=== PATIENT | male | born 1945 | race Caucasian/White ===

== ENCOUNTER 2017-04-25 16:09 | Inpatient (IN) | payer MEDICARE, OTHER ==
[2017-04-25 18:06] LABS: Hematocrit 34 % (42-52); Hemoglobin 11.3 g/dl (14.0-18.0); Mean Corpuscular HGB Conc 34 g/dl (31-36); Mean Corpuscular Hemoglobin 30 pg (27-31); Mean Corpuscular Volume 88 fL (80-94); Mean Platelet Volume 8 um3 (7.4-10.4); Red Blood Count 3.82 10^6/ul (4.0-5.4); Red Cell Distribution Width 13 % (10.5-15); White Blood Count 7.7 10^3/ul (3.5-10.8)
[2017-04-25 18:16] LABS: Urine Bacteria Absent (Absent); Urine Bilirubin Negative (Negative); Urine Glucose 3+(>=500 mg/dL) (Negative); Urine Nitrite Negative (Negative)
[2017-04-25 18:22] LABS: Albumin 4.2 g/dL (3.2-5.2); BUN/Creatinine Ratio 12.9 (8-20); C Reactive Protein 16.46 mg/L (< 5.00); Calcium 9.6 mg/dL (8.6-10.3); EGFR African American 25.8 (>60); EGFR Non-African American 20.1 (>60); Globulin 3.3 g/dL (2-4); Magnesium 1.8 mg/dL (1.9-2.7); Potassium 4.3 mmol/L (3.5-5.0); Total Bilirubin 0.5 mg/dL (0.2-1.0); Total Protein 7.5 g/dL (6.4-8.9)
--- NOTE | 2017-04-25 21:33 | RAD ---
Indication: Elevated creatinine. Real-time sonography of the kidneys was performed. The right kidney measures 10.7 x 5.8 x 5.0 cm. No hydronephrosis is noted. The left kidney measures 11.6 x 6.1 x 4.1 cm. No hydronephrosis is noted. A cyst is noted in the lower pole measuring 2.2 x 1.9 x 2.2 cm. Incidentally noted is hepatic steatosis. IMPRESSION: No hydronephrosis of either kidney is noted.
[2017-04-25] MEDS: NS 0.9% 1000 ML* 1,000 ML IV SCH (22:13)
[2017-04-25] MEDS ORDERED: Dextrose 50% Syringe 50 ML* 25 GM/50 ML SYRINGE IV PUSH PRN (22:30)
--- NOTE | 2017-04-25 22:33 | ED ---
John Martinez Nikita, scribed for Adriel Delgado MD on 04/25/17 at 1743 . Complex/Multi-Sys Presentation - HPI Summary HPI Summary: This patient is a 71 year old M presenting to [facility] accompanied by with a chief complaint of abnormal kidney lab results. Patient reports he visited Dr. Mohan yesterday for kidney testing. Per Dr. Mohan, his had increased Creatinine and high BP. Patient denies pain and urination symptoms. PMHx of Prostate Cancer (recent radiation for cancer). FHx of Kidney Stones. 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 Alleviating Factor(s): Nothing. 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 - Allergies/Home Medications Allergies/Adverse Reactions: Allergies Allergy/AdvReac Type Severity Reaction Status Date / Time Codeine Allergy N/V Verified 04/25/17 16:29 Erythromycin Allergy Nausea Verified 04/25/17 16:29 ENVIRONMENTAL Allergy Unknown Uncoded 04/25/17 16:29 Reaction Details Home Medications: Home Medications Calcium Carbonate-Cholecalcife [Calcium 600 + D 600-200 mg-Unit] 1 tab PO DAILY 04/25/17 [History Confirmed 04/25/17] Diclofenac Sodium EC TAB* [Voltaren EC TAB*] 75 mg PO BID 04/25/17 [History Confirmed 04/25/17] Losartan TAB* [Cozaar TAB*] 100 mg PO DAILY 04/25/17 [History Confirmed 04/25/17 ] Simvastatin TAB(NF) [Zocor(NF)] 20 mg PO DAILY 04/25/17 [History Confirmed 04/25] metFORMIN* [Glucophage 1000 MG TAB *] 1,500 mg PO QPM 04/25/17 [History Confirmed 04/25/17] metFORMIN* [Glucophage 500 MG TAB *] 500 mg PO QAM 04/25/17 [History Confirmed 04/25/17] PMH/Surg Hx/FS Hx/Imm Hx Endocrine/Hematology History: Reports: Hx Diabetes - TYPE II Cardiovascular History: Reports: Hx Hypertension - ON MEDS Denies: Hx Pacemaker/ICD Respiratory History: Reports: Hx Asthma - UNDER CONTROL GI History: Denies: Other GI Disorders Musculoskeletal History: Denies: Other Musculoskeletal History Sensory History: Reports: Hx Cataracts - EARLY STAGES, Hx Contacts or Glasses - GLASSES Denies: Hx Hearing Aid Opthamlomology History: Reports: Hx Cataracts - EARLY STAGES, Hx Contacts or Glasses - GLASSES Neurological History: Denies: Other Neuro Impairments/Disorders Psychiatric History: Reports: Hx Panic Disorder - Surgical History Surgery Procedure, Year, and Place: [place], RIGHT SHOULDER SURGERY.vericocele Hx Anesthesia Reactions: No Infectious Disease History: No Infectious Disease History: Denies: History Other Infectious Disease, Traveled Outside the [place] in Last 30 Days - Family History Known Family History: Positive: Other - Kidney stones. 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 Positive: no symptoms reported All Other Systems Reviewed And Are Negative: Yes Physical Exam - Summary Physical Exam Summary: General: well-appearing, no pain distress Skin: warm, color reflects adequate perfusion, dry Head: normal Eyes: EOMI, CARLI ENT: normal Neck: supple, nontender Respiratory: CTA, breath sounds present Cardiovascular: RRR Abdomen: soft, nontender Bowel: present Musculoskeletal: normal, strength/ROM intact Neurological: normal, sensory/motor intact, A&O x3 Psychological: affect/mood appropriate Triage Information Reviewed: Yes Vital Signs On Initial Exam: Initial Vitals Temp Pulse Resp BP Pulse Ox 98.1 F 87 16 168/111 96 04/25/17 16:29 04/25/17 16:29 04/25/17 16:29 04/25/17 16:29 04/25/17 16:29 Vital Signs Reviewed: Yes - [place] Coma Scale Coma Scale Total: 15 Diagnostics - Vital Signs Vital Signs Temp Pulse Resp BP Pulse Ox 04/25/17 17:00 98.1 F 87 16 168/111 96 04/25/17 16:29 98.1 F 87 16 168/111 96 - Laboratory Lab Results: Lab Results 04/25/17 04/25/17 04/25/17 Range/Units 17:50 17:50 17:50 WBC (3.5-10.8) 10^3/ul RBC (4.0-5.4) 10^6/ul Hgb (14.0-18.0) g/dl Hct (42-52) % MCV (80-94) fL MCH (27-31) pg MCHC (31-36) g/dl RDW (10.5-15) % Plt Count (150-450) 10^3/ul MPV (7.4-10.4) um3 Neut % (Auto) (38-83) % Lymph % (Auto) (25-47) % [place] % (Auto) (1-9) % Eos % (Auto) (0-6) % Baso % (Auto) (0-2) % Absolute Neuts (auto) (1.5-7.7) 10^3/ul Absolute Lymphs (auto) (1.0-4.8) 10^3/ul Absolute Monos (auto) (0-0.8) 10^3/ul Absolute Eos (auto) (0-0.6) 10^3/ul Absolute Basos (auto) (0-0.2) 10^3/ul Absolute Nucleated RBC 10^3/ul Nucleated RBC % INR (Anticoag Therapy) 0.95 (0.89-1.11) APTT 31.7 (26.0-36.3) seconds Sodium 134 (133-145) mmol/L Potassium 4.3 (3.5-5.0) mmol/L Chloride 102 (101-111) mmol/L Carbon Dioxide 23 (22-32) mmol/L Anion Gap 9 (2-11) mmol/L BUN 40 H (6-24) mg/dL Creatinine 3.09 H (0.67-1.17) mg/dL Est GFR ( Amer) 25.8 (>60) Est GFR (Non-Af Amer) 20.1 (>60) BUN/Creatinine Ratio 12.9 (8-20) Glucose 202 H (70-100) mg/dL Calcium 9.6 (8.6-10.3) mg/dL Magnesium 1.8 L (1.9-2.7) mg/dL Total Bilirubin 0.50 (0.2-1.0) mg/dL AST 29 (13-39) U/L ALT 41 (7-52) U/L Alkaline Phosphatase 67 (34-104) U/L C-Reactive Protein 16.46 H (< 5.00) mg/L B-Natriuretic Peptide 186 H ( - 100) pg/mL Total Protein 7.5 (6.4-8.9) g/dL Albumin 4.2 (3.2-5.2) g/dL Globulin 3.3 (2-4) g/dL Albumin/Globulin Ratio 1.3 (1-3) Prostate Specific Ag 0.011 (0-4.000) ng/mL Urine Color Urine Appearance Urine pH (5-9) Ur Specific [place] (1.010-1.030) Urine Protein (Negative) Urine Ketones (Negative) Urine Blood (Negative) Urine Nitrate (Negative) Urine Bilirubin (Negative) Urine Urobilinogen (Negative) Ur Leukocyte Esterase (Negative) Urine WBC (Auto) (Absent) Urine RBC (Auto) (Absent) Urine Bacteria (Absent) Urine Glucose (Negative) 04/25/17 04/25/17 Range/Units 17:50 17:55 WBC 7.7 (3.5-10.8) 10^3/ul RBC 3.82 L (4.0-5.4) 10^6/ul Hgb 11.3 L (14.0-18.0) g/dl Hct 34 L (42-52) % MCV 88 (80-94) fL MCH 30 (27-31) pg MCHC 34 (31-36) g/dl RDW 13 (10.5-15) % Plt Count 220 (150-450) 10^3/ul MPV 8 (7.4-10.4) um3 Neut % (Auto) 69.9 (38-83) % Lymph % (Auto) 15.8 L (25-47) % [place] % (Auto) 8.0 (1-9) % Eos % (Auto) 5.5 (0-6) % Baso % (Auto) 0.8 (0-2) % Absolute Neuts (auto) 5.3 (1.5-7.7) 10^3/ul Absolute Lymphs (auto) 1.2 (1.0-4.8) 10^3/ul Absolute Monos (auto) 0.6 (0-0.8) 10^3/ul Absolute Eos (auto) 0.4 (0-0.6) 10^3/ul Absolute Basos (auto) 0.1 (0-0.2) 10^3/ul Absolute Nucleated RBC 0 10^3/ul Nucleated RBC % 0 INR (Anticoag Therapy) (0.89-1.11) APTT (26.0-36.3) seconds Sodium (133-145) mmol/L Potassium (3.5-5.0) mmol/L Chloride (101-111) mmol/L Carbon Dioxide (22-32) mmol/L Anion Gap (2-11) mmol/L BUN (6-24) mg/dL Creatinine (0.67-1.17) mg/dL Est GFR ( Amer) (>60) Est GFR (Non-Af Amer) (>60) BUN/Creatinine Ratio (8-20) Glucose (70-100) mg/dL Calcium (8.6-10.3) mg/dL Magnesium (1.9-2.7) mg/dL Total Bilirubin (0.2-1.0) mg/dL AST (13-39) U/L ALT (7-52) U/L Alkaline Phosphatase (34-104) U/L C-Reactive Protein (< 5.00) mg/L B-Natriuretic Peptide ( - 100) pg/mL Total Protein (6.4-8.9) g/dL Albumin (3.2-5.2) g/dL Globulin (2-4) g/dL Albumin/Globulin Ratio (1-3) Prostate Specific Ag (0-4.000) ng/mL Urine Color Straw Urine Appearance Clear Urine pH 5.0 (5-9) Ur Specific [place] 1.007 L (1.010-1.030) Urine Protein Negative (Negative) Urine Ketones Negative (Negative) Urine Blood 1+ H (Negative) Urine Nitrate Negative (Negative) Urine Bilirubin Negative (Negative) Urine Urobilinogen Negative (Negative) Ur Leukocyte Esterase Negative (Negative) Urine WBC (Auto) Trace(0-5/hpf) (Absent) Urine RBC (Auto) Trace(0-2/hpf) (Absent) Urine Bacteria Absent (Absent) Urine Glucose 3+(>=500 mg/dl) H (Negative) Result Diagrams: 04/25/17 17:50 04/25/17 17:50 Lab Statement: Any lab studies that have been ordered have been reviewed, and results considered in the medical decision making process. - Ultrasound No standard instances Ultrasound Interpretation Completed By: Radiologist - Renal US: No hydronephrosis of either kidney is noted. Re-Evaluation - Re-Evaluation First Eval Re-Evaluation Time: 20:30 Comment: Updated pt about results. Second Eval Re-Evaluation Time: 20:45 Comment: Discussed with pt about plans to admit. Pt is unsure whether he wants to stay. Third Eval Re-Evaluation Time: 21:54 Comment: Discuss with pt who agrees to admission. Complex Multi-Symp Course/Dx Course Of Treatment: DISCUSSED WITH DR ADAMS AND HOSPITALIST. NO SIGN OF MECHANICAL OBSTRUCTION. PATIENT ADMITTED BY HOSPITALIST. DISCUSSED WITH PATIENT/. NO CRITICAL CARE TIME. - Diagnoses Provider Diagnoses: Acute renal insufficiency - Physician Notifications Discussed Care Of Patient With: Nii Adams Time Discussed With Above Provider: 20:35 Instructed by Provider To: Other - Consulted Dr. Adams who recommends we do a Renal US to test for hydro nephrosis. Consulted Dr. Ponce at 2041 who accepts pt for admission. Consulted Dr. Ponce at 2224 about the pt who agrees to admit , so he accepts the pt for admission. Discharge - Discharge Plan Condition: Stable Disposition: ADMITTED TO [facility] Referrals: Yaakov Mohan MD [Primary Care Provider] - The documentation as recorded by the John manzano Nikita accurately reflects the service I personally performed and the decisions made by me, Adriel Delgado MD.
[2017-04-26] MEDS: NS 0.9% 1000 ML* 1,000 ML IV SCH ×5 (02:32→22:35)
[2017-04-26 05:45] LABS: BUN/Creatinine Ratio 13.3 (8-20); Calcium 8.8 mg/dL (8.6-10.3); EGFR African American 30.1 (>60); EGFR Non-African American 23.4 (>60); Potassium 4.4 mmol/L (3.5-5.0)
[2017-04-26] MEDS ORDERED: Insulin LISPRO* 1 UNITS UNIT SUBCUT SCH (07:30)
--- NOTE | 2017-04-26 08:51 | HP ---
CC: Dr. Yaakov Mohan * HISTORY AND PHYSICAL: DATE OF ADMISSION: 04/26/17 PRIMARY CARE PHYSICIAN: Dr. Yaakov Mohan. CHIEF COMPLAINT: Abnormal labs. HISTORY OF PRESENT ILLNESS: The patient is a 71-year-old gentleman who said he used to be a patient of Dr. Tian Cerna and went to get set up with Dr. Dr. Yaakov Mohan as his new PCP when he had his labs drawn today. Unfortunately, his creatinine came back high, over 3, and his new PCP was appropriately concerned. He was concerned also that it could be a postrenal cause and so sent him over to the ER for evaluation. The patient did have an ultrasound which showed no evidence of hydronephrosis. It was unclear as to why his kidney function was worsening. The patient does say that he takes losartan and may have been taking wrong for several days. He otherwise feels fine. He has no complaints. No frequency of urination or pain on urination, or hesitancy in urination. He has no flank pain. PAST MEDICAL HISTORY: He has a past medical history significant for prostate cancer, status post radiation therapy and Lupron, diabetes mellitus, hypertension. PAST SURGICAL HISTORY: Significant for right shoulder surgery. CURRENT MEDICATIONS: 1. Diclofenac 75 mg twice a day, which he rarely takes. 2. Calcium carbonate with cholecalciferol 1 tablet daily. 3. Zocor 20 mg daily. 4. Losartan 100 mg daily. 5. Metformin 500 mg in the morning and 1500 mg in the evening. ALLERGIES: He has allergy/adverse reaction to CODEINE and ERYTHROMYCIN. FAMILY HISTORY: Mother at 95 of diabetes. Father at 69 of an [place]. SOCIAL HISTORY: No tobacco, alcohol, or recreational drug use. 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 His is his healthcare proxy. He has 2 children. REVIEW OF SYSTEMS: A 14-point review of systems is completed with the patient. All pertinent positives and negatives are in the history of present illness, otherwise negative. PHYSICAL EXAMINATION GENERAL: A pleasant gentleman lying in bed, in no acute distress. VITAL SIGNS: Temperature 98.2 degrees, heart rate 80 beats per minute, respiratory rate 16 breaths per minute, pulse ox 98%, blood pressure 168/93. HEENT: Normocephalic and atraumatic. Pupils are equal, round and reactive to light. Moist mucous membranes. NECK: Supple. No JVD, bruits, palpable thyroid or lymphadenopathy. CHEST: Clear to auscultation and percussion bilaterally. CARDIOVASCULAR: S1, S2 appreciated. Regular rate and rhythm. ABDOMEN: Positive bowel sounds in all 4 quadrants. Soft, nontender, and nondistended. No hepatosplenomegaly. EXTREMITIES: No cyanosis, clubbing, or edema. +2 peripheral pulses bilaterally. NEUROLOGIC: Alert and oriented x3. Moves all extremities. SKIN: No rashes or abnormalities. LABORATORY DATA: White count 7.7, hemoglobin 9.3, hematocrit 34, his platelets are 220. His sodium is 134, potassium 4.2, chloride 102, CO2 23, BUN 40, creatinine . His glucose is 202. BNP is 186. Urinalysis is +3 glucose. INR is 0.95. Renal ultrasound shows no hydronephrosis of the kidney is noted. ASSESSMENT AND PLAN: 1. Acute kidney injury. Unclear etiology. The patient says he has been taking diclofenac at sometime. He may have taken his losartan incorrectly over the last several days. We will vigorously hydrate the patient. Recheck in the a.m. The patient is adamant and he wants to go home tomorrow, no matter what his labs show. Hopefully, they will show resolution or certainly improvement. I have also ordered a urine sodium and creatinine to find out fractional excretion of sodium. 2. Diabetes mellitus. Hold metformin. We will have to have this discontinued for now with his creatinine that is high anyway. Fingersticks with sliding scale insulin. 3. Hypertension. Poor control, but we will have to hold losartan, monitor, may need to initiate another medication such amlodipine. 4. FEN. Consistent carb diet. 5. DVT prophylaxis. Heparin subcu. 6. The patient is a full code. TIME SPENT: Over 75 minutes was spent on this H and P; more than 40 minutes of which was spent on direct [id number] contact with the patient in evaluation, physical exam, counseling, and coordination of care. [id number]/[facility]PS #: [id number] MTDD
[2017-04-26] MEDS ORDERED: Atorvastatin* 10 MG TAB PO SCH (09:00)
[2017-04-26] MEDS ORDERED: amLODIPine TAB* 5 MG PO SCH ×2 (11:00→19:59)
[2017-04-26] MEDS: glipiZIDE TAB* 5 MG PO SCH (11:31)
[2017-04-26] MEDS: Heparin VIAL(*) 5000 UNITS/ML VIAL (FIVE THOUSAND) SUBCUT SCH ×2 (15:00→21:53)
[2017-04-26] MEDS: PTO: Fexofenadine (NF) 180 MG TAB PO SCH (15:58)
--- NOTE | 2017-04-26 17:15 | PN ---
Subjective Date of Service: 04/26/17 Interval History: Patient seen with at bedside He was very upset this AM about his stay in the hospital. We discussed his concerns and he relays that he is frustrated by "all the inefficiencies" in the hospital which include bringing a menu without a pencil, his IV pump ringing, and having to use a buzzer to call for a nursing. Today he feels well and denies CP, SOB, N/V, LH, changes in urination Objective Active Medications: Amlodipine Besylate (Norvasc Tab*) 5 mg PO DAILY [facility] Last Admin: 04/26/17 11:32 Dose: 5 mg Dextrose (D50w Syringe 50 Ml*) 12.5 gm IV PUSH .FOR FS < 60 - SS PRN PRN Reason: FS < 60 Fexofenadine HCl (Kandi 180 (Nf)) 180 mg PO 0900 [facility] Last Admin: 04/26/17 15:58 Dose: 180 mg Glipizide (Glucotrol Tab*) 2.5 mg PO DAILY [facility] Last Admin: 04/26/17 11:31 Dose: 2.5 mg Heparin Sodium (Porcine) (Heparin Vial(*)) 5,000 units SUBCUT Q8HR [facility] Last Admin: 04/26/17 15:00 Dose: 5,000 units Sodium Chloride (Ns 0.9% 1000 Ml*) 1,000 mls @ 200 mls/hr IV PER RATE [facility] Last Admin: 04/26/17 07:31 Dose: 200 mls/hr Simvastatin (Zocor(Nf)) 10 mg PO DAILY [facility] Oxygen Devices in Use Now: None Appearance: obese, NAD Eyes: No Scleral Icterus, PERRLA Ears/Nose/Mouth/Throat: NL Teeth, Lips, Gums, Clear Oropharnyx, Mucous Membranes Moist Neck: NL Appearance and Movements; NL JVP, Trachea Midline, No Thyroid Enlargement, Masses Respiratory: Symmetrical Chest Expansion and Respiratory Effort, Clear to Auscultation Cardiovascular: NL Sounds; No Murmurs; No JVD, RRR, No Edema Abdominal: NL Sounds; No Tenderness; No Distention, No Hepatosplenomegaly Lymphatic: No Cervical Adenopathy Extremities: No Edema, No Clubbing, Cyanosis Skin: No Rash or Ulcers, No Nodules or Sclerosis Neurological: Alert and Oriented x 3, - - cn2-12 intact Result Diagrams: 04/25/17 17:50 04/26/17 05:16 Additional Lab and Data: Lab Results 04/25/17 04/25/17 04/25/17 Range/Units 17:50 17:50 17:50 WBC (3.5-10.8) 10^3/ul RBC (4.0-5.4) 10^6/ul Hgb (14.0-18.0) g/dl Hct (42-52) % MCV (80-94) fL MCH (27-31) pg MCHC (31-36) g/dl RDW (10.5-15) % Plt Count (150-450) 10^3/ul MPV (7.4-10.4) um3 Neut % (Auto) (38-83) % Lymph % (Auto) (25-47) % [place] % (Auto) (1-9) % Eos % (Auto) (0-6) % Baso % (Auto) (0-2) % Absolute Neuts (auto) (1.5-7.7) 10^3/ul Absolute Lymphs (auto) (1.0-4.8) 10^3/ul Absolute Monos (auto) (0-0.8) 10^3/ul Absolute Eos (auto) (0-0.6) 10^3/ul Absolute Basos (auto) (0-0.2) 10^3/ul Absolute Nucleated RBC 10^3/ul Nucleated RBC % INR (Anticoag Therapy) 0.95 (0.89-1.11) APTT 31.7 (26.0-36.3) seconds Sodium 134 (133-145) mmol/L Potassium 4.3 (3.5-5.0) mmol/L Chloride 102 (101-111) mmol/L Carbon Dioxide 23 (22-32) mmol/L Anion Gap 9 (2-11) mmol/L BUN 40 H (6-24) mg/dL Creatinine 3.09 H (0.67-1.17) mg/dL Est GFR ( Amer) 25.8 (>60) Est GFR (Non-Af Amer) 20.1 (>60) BUN/Creatinine Ratio 12.9 (8-20) Glucose 202 H (70-100) mg/dL Calcium 9.6 (8.6-10.3) mg/dL Magnesium 1.8 L (1.9-2.7) mg/dL Total Bilirubin 0.50 (0.2-1.0) mg/dL AST 29 (13-39) U/L ALT 41 (7-52) U/L Alkaline Phosphatase 67 (34-104) U/L C-Reactive Protein 16.46 H (< 5.00) mg/L B-Natriuretic Peptide 186 H ( - 100) pg/mL Total Protein 7.5 (6.4-8.9) g/dL Albumin 4.2 (3.2-5.2) g/dL Globulin 3.3 (2-4) g/dL Albumin/Globulin Ratio 1.3 (1-3) Prostate Specific Ag 0.011 (0-4.000) ng/mL Urine Color Urine Appearance Urine pH (5-9) Ur Specific [place] (1.010-1.030) Urine Protein (Negative) Urine Ketones (Negative) Urine Blood (Negative) Urine Nitrate (Negative) Urine Bilirubin (Negative) Urine Urobilinogen (Negative) Ur Leukocyte Esterase (Negative) Urine WBC (Auto) (Absent) Urine RBC (Auto) (Absent) Urine Bacteria (Absent) Urine Glucose (Negative) 04/25/17 04/25/17 Range/Units 17:50 17:55 WBC 7.7 (3.5-10.8) 10^3/ul RBC 3.82 L (4.0-5.4) 10^6/ul Hgb 11.3 L (14.0-18.0) g/dl Hct 34 L (42-52) % MCV 88 (80-94) fL MCH 30 (27-31) pg MCHC 34 (31-36) g/dl RDW 13 (10.5-15) % Plt Count 220 (150-450) 10^3/ul MPV 8 (7.4-10.4) um3 Neut % (Auto) 69.9 (38-83) % Lymph % (Auto) 15.8 L (25-47) % [place] % (Auto) 8.0 (1-9) % Eos % (Auto) 5.5 (0-6) % Baso % (Auto) 0.8 (0-2) % Absolute Neuts (auto) 5.3 (1.5-7.7) 10^3/ul Absolute Lymphs (auto) 1.2 (1.0-4.8) 10^3/ul Absolute Monos (auto) 0.6 (0-0.8) 10^3/ul Absolute Eos (auto) 0.4 (0-0.6) 10^3/ul Absolute Basos (auto) 0.1 (0-0.2) 10^3/ul Absolute Nucleated RBC 0 10^3/ul Nucleated RBC % 0 INR (Anticoag Therapy) (0.89-1.11) APTT (26.0-36.3) seconds Sodium (133-145) mmol/L Potassium (3.5-5.0) mmol/L Chloride (101-111) mmol/L Carbon Dioxide (22-32) mmol/L Anion Gap (2-11) mmol/L BUN (6-24) mg/dL Creatinine (0.67-1.17) mg/dL Est GFR ( Amer) (>60) Est GFR (Non-Af Amer) (>60) BUN/Creatinine Ratio (8-20) Glucose (70-100) mg/dL Calcium (8.6-10.3) mg/dL Magnesium (1.9-2.7) mg/dL Total Bilirubin (0.2-1.0) mg/dL AST (13-39) U/L ALT (7-52) U/L Alkaline Phosphatase (34-104) U/L C-Reactive Protein (< 5.00) mg/L B-Natriuretic Peptide ( - 100) pg/mL Total Protein (6.4-8.9) g/dL Albumin (3.2-5.2) g/dL Globulin (2-4) g/dL Albumin/Globulin Ratio (1-3) Prostate Specific Ag (0-4.000) ng/mL Urine Color Straw Urine Appearance Clear Urine pH 5.0 (5-9) Ur Specific [place] 1.007 L (1.010-1.030) Urine Protein Negative (Negative) Urine Ketones Negative (Negative) Urine Blood 1+ H (Negative) Urine Nitrate Negative (Negative) Urine Bilirubin Negative (Negative) Urine Urobilinogen Negative (Negative) Ur Leukocyte Esterase Negative (Negative) Urine WBC (Auto) Trace(0-5/hpf) (Absent) Urine RBC (Auto) Trace(0-2/hpf) (Absent) Urine Bacteria Absent (Absent) Urine Glucose 3+(>=500 mg/dl) H (Negative) Assess/Plan/Problems-Billing Assessment: 71 yo M h/o prostate ca s/p radiation x 9 weeks (last 01/2017) HTN, DM2 found with creatinine >3 as outpatient and sent to hospital for further evaluation - Patient Problems (1) Acute kidney failure Comment: FeNa >2 and BUN:Cr ration <2 and no h/o dehydration argues against prerenal although some improvement overnight with NS. No change in medications. Has been on losartan for years. No post renal obstruction. His only NSAID he takes 1-2x per week at most. Suspect intrinsic renal pathology. Discussed with Dr. Ferrera who will be unable to consult today but will see tomorrow. Start 24hr urine collection, check SPEP/UPEP, ANCA panel. Repeat BMP tomorrow. Continue with normal saline. Stop losartan (2) Hypertension Comment: stop losartan start norvasc (3) Diabetes Comment: stop metformin start glipizide 2.5mg daily (4) DVT prophylaxis Comment: HSQ
[2017-04-26] MEDS ORDERED: Insulin LISPRO* 1 UNITS UNIT SUBCUT ONE (19:59)
[2017-04-26] MEDS ORDERED: amLODIPine TAB* 5 MG PO ONE (20:00)
[2017-04-27] MEDS: NS 0.9% 1000 ML* 1,000 ML IV SCH (03:37)
[2017-04-27] MEDS: Heparin VIAL(*) 5000 UNITS/ML VIAL (FIVE THOUSAND) SUBCUT SCH (05:15)
[2017-04-27 05:41] LABS: BUN/Creatinine Ratio 13.7 (8-20); Calcium 8.6 mg/dL (8.6-10.3); EGFR African American 41.5 (>60); EGFR Non-African American 32.3 (>60); Potassium 4.5 mmol/L (3.5-5.0)
[2017-04-27] MEDS: PTO: Fexofenadine (NF) 180 MG TAB PO SCH (08:29)
[2017-04-27] MEDS: glipiZIDE TAB* 5 MG PO SCH (08:30)
[2017-04-27] MEDS ORDERED: SIMVASTATIN 20 MG PO SCH (09:00)
--- NOTE | 2017-04-27 10:01 | DCNOTE ---
Patient seen this morning. Anxious to be discharged. Understands plans to f/u with Dr. Ferrera. 24 hr urine will be completed at 1030. On exam, middle-aged, M, sitting in chair in NAD, no LE edema Discharge home with med changes (d/c metformin and losartan, begin amlodipine and glipizide). F/U with PCP and Nephro.
[2017-04-27 11:34] VITALS: BP 176/74
--- NOTE | 2017-04-27 11:48 | CONS ---
CC: Dr. Mohan * NEPHROLOGY CONSULTATION: DATE OF CONSULT: 04/26/17 HISTORY OF PRESENT ILLNESS: Mr. Miranda is a 71-year-old gentleman previously a patient of Dr. Cerna who has recently been seen by Dr. Mohan. He had some routine laboratory tests done and he was found to have an elevated serum creatinine precipitating hospitalization. Around the time of admission, there was no episodes of dehydration or hemorrhage. There is no lightheadedness, no dizziness, no infectious illnesses. No penicillins. He has had no x-ray contrast studies. He does take diclofenac and had 1 tablet in the few days prior to admission and he takes it on an irregular basis because of right shoulder pain. He has a history of prostate cancer. He is status post radiation therapy and Lupron. PAST MEDICAL HISTORY: Significant for diabetes mellitus type 2 and hypertension. MEDICATIONS AT THE TIME OF ADMISSION: Include: 1. Diclofenac 75 mg twice a day p.r.n. 2. Calcium carbonate with cholecalciferol 1 daily. 3. Zocor 20 mg daily. 4. Losartan 100 mg daily. 5. Metformin 500 mg in the morning and 1500 mg at bedtime. ALLERGIES: He is allergic to CODEINE and ERYTHROMYCIN. FAMILY HISTORY: Unremarkable. 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 REVIEW OF SYSTEMS: Unremarkable. PHYSICAL EXAM: General: He is a well-developed, well-nourished white gentleman who appears to be quite comfortable. Vital Signs: Blood pressure is 129/67 with a pulse of 84, respirations are 16. HEENT: He is anicteric. His extraocular muscles are intact. Mucous membranes are moist. Neck: There is no jugular venous distention. Chest: Clear. Heart: Revealed a regular rate and rhythm without murmurs. Abdomen: Soft and nontender. Bones, joints, and extremities: Reveal no cyanosis, clubbing, or edema. Neurologic: Grossly intact. DIAGNOSTIC STUDIES/LAB DATA: A review of his laboratory studies reveals hemoglobin of 11.3 with a white count of 7.7. His creatinine is 2.5 down from maximum of 3.09. His electrolytes reveal a sodium of 138, potassium 4.5, total CO2 of 21, chloride 110, BUN 28, glucose 227. His most recent hemoglobin A1c in January was 8. His urinalysis revealed 1+ blood, but was otherwise unremarkable. IMPRESSION: Acute renal insufficiency. He had some known low-grade renal insufficiency as of November of this year. We do not have any of the usual culprits with regard to precipitating this event. Nevertheless with hydration, he has been getting better fairly rapidly. I would probably withhold his losartan until we see his renal function continue to improve. The patient will stay off of metformin as well. I would avoid nonsteroidal anti-inflammatory agents. I will see him back in the office somewhere in the vicinity of a week. [id number]/[facility] #: [id number] TORIN
[2017-04-27 17:09] LABS: Albumin 3.2 g/dL (3.4-4.7); Gamma Globulin 0.9 g/dL (0.6-1.6); Total Protein(PEP) 6.5 g/dL (6.3 - 7.9)
--- NOTE | 2017-04-28 10:29 | DS ---
CC: Dr. Mohan; Dr. Gamble; Dr. Ferrera DISCHARGE SUMMARY: DATE OF ADMISSION: 04/25/17 DATE OF DISCHARGE: 04/27/17 PRIMARY CARE PHYSICIAN: Dr. Mohan PRINCIPAL DISCHARGE DIAGNOSIS: Acute renal insufficiency. SECONDARY DIAGNOSES: Prostate cancer, status post radiation therapy and Lupron, diabetes, hypertens ion. CONSULTATION DURING HOSPITALIZATION: Dr. Surya Ferrera, Nephrology. DISCHARGE MEDICATION REGIMEN: 1. Amlodipine 10 mg by mouth daily. 2. Glipizide 5 mg by mouth daily. 3. Simvastatin 20 mg by mouth daily. 4. Calcium carbonate with cholecalciferol 600/200 mg 1 tablet by mouth daily. STUDIES DURING HOSPITALIZATION: Renal ultrasound, impression: No hydronephrosis of the kidney is n oted. HISTORY OF PRESENT ILLNESS AND HOSPITAL SUMMARY: Please see the full history and physical by Dr. Patric Ponce for full details. Briefly, Mr. Miranda is a 71-year-old man who presented to [facility] care with Dr. Mohan and had routine labs drawn and the patient was found to have a creatinine over 3. T here is no clear evidence for why this may have happened, so Dr. Mohan recommended to come to the e mergency room for evaluation. He underwent ultrasound, which showed no evidence of hydronephrosis. On review of history, the patient takes NSAIDs sparingly and he has been on losartan for quite a wh ile. The exact etiology of his renal insufficiency was unclear. He was started on IV fluids and ove r the following days his renal function improved. Discharge creatinine was 2.05. Dr. Ferrera evalua liv the patient. A myeloperoxidase antibody and proteinase 3 antibody were negative. The patient feliz d SPEP and UPEP that were pending at the time of discharge as well as an ANCA panel that was pending . A 24-hour urine was collected prior to discharge. The results of which are not back yet. The pat ient will be discharged off of losartan and off of metformin due to his kidney dysfunction and as sa id will be sent on amlodipine and glipizide. The patient will follow up with his PCP as well as brandt Ferrera in the office for further evaluation and review of the labs. Labs pending at the time of discharge SPEP, UPEP, ANCA panel, 24-hour urine. TIME SPENT: Total time spent on this discharge 45 minutes. This is a summary of hospitalization. Please see the full medical record for further details. [id number]/[facility] #: [id number]
[2017-05-03 13:33] LABS: Albumin 43 %; Total Protein Concentration 6 mg/dL
== END 2017-04-27 11:23 | disposition home or self-care (01) | DRG 684 ==
LOC: ED 16:09 → MED 22:27 → OBSVTOIN 04-26 15:51 → MED 04-27 11:13
PROVIDERS: ADMIT Internal Medicine; ATTEND Hospitalist
DX: N17.9 Acute kidney failure, unspecified (principal); E11.36 Type 2 diabetes mellitus with diabetic cataract; I10 Essential (primary) hypertension; F41.0 Panic disorder [episodic paroxysmal anxiety]; J45.909 Unspecified asthma, uncomplicated; Z83.3 Family history of diabetes mellitus; Z82.49 Family history of ischemic heart disease and other diseases of the circulatory system; Z85.46 Personal history of malignant neoplasm of prostate; Z88.1 Allergy status to other antibiotic agents; Z84.1 Family history of disorders of kidney and ureter; Z92.3 Personal history of irradiation; Z79.84 Long term (current) use of oral hypoglycemic drugs; Z88.5 Allergy status to narcotic agent
CPT/HCPCS: 36415; 76775; 80048; 80053; 81003; 81015; 82570; 83516; 83735; 83880; 84153; 84155; 84156; 84165; 84166; 84300; 85025; 85610; 85730; 86140; A9270-GY; G0103; J1644

== ENCOUNTER 2017-12-20 20:27 | Emergency (ER) | payer MEDICARE, OTHER ==
[2017-12-20 20:47] VITALS: BP 179/98
--- NOTE | 2017-12-20 21:26 | UC ---
Upper Extremity HPI - HPI Summary HPI Summary: 72 y/o male PMHX DM type II and HTN presents to the urgent care c/o left thumb pain w/swelling and pus s/p banging his thumb in a door about 2 days ago. Pt reports part of nail was pulled. It became bruised on the medial side of his nail. Yesterday it became swollen w/ pus. he has taken Tylenol PO to alleviate symptoms. Pain is throbbing 8/10. Pt can move his thumb w/o any difficulty. Pt denies numbness or tingling sensation, fever, sOB, chest pain, abdominal pain , N/V/D. - History of Current Complaint Chief Complaint: UCUpperExtremity Stated Complaint: INFECTED FINGER Time Seen by Provider: 12/20/17 21:15 Hx Obtained From: Patient Onset/Duration: Sudden Onset, Lasting Days - 2 days, Still Present, Worse Since - yesterday Severity Initially: Moderate Severity Currently: Moderate Pain Intensity: 8 - touch Pain Scale Used: 0-10 Numeric Location Of Pain: Is Discrete @ - left first phalanx DIPJ and nailbed Character: Throbbing Aggravating Factor(s): Movement, Flexion Alleviating Factor(s): Heat, Rest Associated Signs And Symptoms: Positive: Swelling, Redness, Bruising. Negative : Fever, Numbness/Tingling Related History: Dominant Hand Right - Risk Factors Non-Orthopedic Risk Factor: Negative DVT Risk Factors: Negative Septic Arthritis Risk Factor: Negative - Allergies/Home Medications Allergies/Adverse Reactions: Allergies Allergy/AdvReac Type Severity Reaction Status Date / Time peanut Allergy Severe N/V Verified 12/20/17 20:49 codeine Allergy N/V Verified 12/20/17 20:49 erythromycin base Allergy Nausea Verified 12/20/17 20:49 ENVIRONMENT Allergy SEE Uncoded 12/20/17 20:49 COMMENTS Home Medications: Home Medications Acetaminophen [Mapap] 1,000 mg PO ONCE PRN MDD ] 12/20/17 [History Confirmed ] Sitagliptin Phosphate [Januvia] 100 mg PO DAILY 12/20/17 [History Confirmed ] glipiZIDE TAB* [Glucotrol TAB*] 10 mg PO DAILY 12/20/17 [History Confirmed 12/20] PMH/Surg Hx/FS Hx/Imm Hx Previously Healthy: Yes Endocrine History: Diabetes, Dyslipidemia Cardiovascular History: Hypertension - Surgical History Surgical History: Yes Surgery Procedure, Year, and Place: [facility] [place], RIGHT SHOULDER SURGERY.vericocele - Family History Known Family History: Positive: Cardiac Disease, Hypertension Family History: Kidney stones. - Social History Occupation: Retired Lives: With Family Alcohol Use: Occasionally Substance Use Type: None Smoking Status (MU): Never Smoked Tobacco - Immunization History Most Recent Influenza Vaccination: 2014 Most Recent Pneumonia Vaccination: unknown Review of Systems Constitutional: Negative Skin: Bruising - around left first DPIJ, Other - infected left thumb w/ swelling , rednees and pus Eyes: Negative ENT: Negative Respiratory: Negative Cardiovascular: Negative Gastrointestinal: Negative Genitourinary: Negative Motor: Negative Neurovascular: Negative Musculoskeletal: Decreased ROM - left first DPIJ, Other: - left thumb pain s/p injury Neurological: Negative Psychological: Negative Is Patient Immunocompromised?: No All Other Systems Reviewed And Are Negative: Yes Physical Exam - Summary Physical Exam Summary: Vital Signs Reviewed: Yes General: well developed, well nourished obese male sitting in the examining table w/o any apparent distress Eye Exam: Normal Eyes: Positive: Conjunctiva Clear - PERRLA, EOMI, fundi grossly normal ENT: Positive: Normal ENT inspection, Hearing grossly normal, Pharynx normal, TMs normal Neck: Positive: Supple, Nontender, No Lymphadenopathy Respiratory: Positive: Chest non-tender, Lungs clear, Normal breath sounds, No respiratory distress Cardiovascular: Positive: RRR, No Murmur, Pulses Normal, Brisk Capillary Refill Abdomen Description: Positive: Nontender, No Organomegaly, Soft. Negative: CVA Tenderness (R), CVA Tenderness (L) Bowel Sounds: Positive: Present Musculoskeletal: Positive: Strength Intact, ROM Intact, No Edema Neurological: Positive: Alert, Muscle Tone Normal Psychological Exam: Normal Skin: Positive: LF phalanx near first DIPJ with a brushing, and erythematous pustule that is indurated and fluctuant, tender to palpation, swollen, and warm to touch around medial aspect of nailbed.. Decreae ROM of first DIPJ due to pain., sensation is intact, capillary refill WNL, reflexes WNL Triage Information Reviewed: Yes Vital Signs: Initial Vital Signs Temp 99.3 F 12/20/17 20:42 Pulse 80 12/20/17 20:42 Resp 16 12/20/17 20:42 BP 179/98 12/20/17 20:42 Pulse Ox 96 12/20/17 20:42 Upper Extremity Course/Dx - Course Course Of Treatment: 72 y/o male PMHX DM type II and HTN presents to the urgent care c/o left thumb pain w/swelling and pus s/p banging his thumb in a door about 2 days ago. Pt reports part of nail was pulled. It became bruised on the medial side of his nail. Yesterday it became swollen w/ pus. he has taken Tylenol PO to alleviate symptoms. Pain is throbbing 04/06. Pt can move his thumb w/o any difficulty. Pt denies numbness or tingling sensation, fever, sOB, chest pain, abdominal pain, N/V/D.Hx obtained. Pt w/ a paronychia on the left first phalanx nail bed on examination. Let Thumb X-ray ordered: Impression: soft tissue swelling around nailbed observe, and degenerative changes at the DIPJ and MC. I&D of paronychia procedure:The procedure was explained and consent obtained. Clawson protocol performed. Digital block performed at base of of 1st phalanx w/ 2 mL of Lido 1% with good anesthesia. Sterile drape and prep were done. The fluctuant center around nail was incised with #11 blade scalpel. A moderate amount of caseous material was expressed . wound cultures obtained and sent to lab top r/o MRSA. wound was irrigated with normal saline. Bacitracin topical ointment applied and wound covered with sterile dressing. The patient tolerated the procedure well, neurovacsular intact. Pt Rx Bactrim PO and advise to take diclofenac PO he has at home for pain. Pt advised if fever develops and pain increase despite ABX to go immediately to the ER for further management.Pt's BP is elevated today advised to decrease salt in diet, monitor BP and f/u with PCP for further management. D/C instructions explained. Pt understood and agreed with D/C instructions. Left the clinic ambulating A& OX3. - Differential Dx/Diagnosis Differential Diagnosis/HQI/PQRI: Arthritis, Contusion, Fracture (Closed), Strain , Sprain, Other - panronychia, felon Provider Diagnoses: 1- left first phalnax pain s/p injury. 2-left first phalanx paronychia I&D. 3- Uncontrolled HTN Discharge - Sign-Out/Discharge Documenting (check all that apply): Discharge/Admit/Transfer - D/C home - Discharge Plan Condition: Stable Disposition: HOME Prescriptions: Bacitracin OINTMENT* 1 applic TOPICAL TID #1 tube Sulfamethox/Trimethoprim DS* [Bactrim DS 800/160 TAB*] 1 tab PO BID #19 tab Patient Education Materials: Paronychia (ED), Low-Sodium Diet (ED) Referrals: Yaakov Mohan MD [Primary Care Provider] - Additional Instructions: 1-Please take full course of antibiotic to avoid resistance. Keep wound clean and dry with a sterile dressing. Apply bacitracin topical as directed. soak your thumb w/ warm water and [place] as directed to decrease inflammation. 2-. Take diclofenac PO q6-8hrs prn you have at home for pain or swelling. 3-If you develop fever or redness despite antibiotic please go to the ER immediately or return to the Urgent care. 4- Wound culture sent to lab, if any abnormal result you will receive a call from us. 5-Your BP is elevated today. please decrease salt in your diet, monitor BP and if it continues to be elevated please f/u with your PCP for further management - Billing Disposition and Condition Condition: STABLE Disposition: HOME
[2017-12-20] MEDS ORDERED: Lidocaine 1% MPF* 2 ML VIAL INJ ONE (21:28)
--- NOTE | 2017-12-20 21:48 | RAD ---
Indication: Left thumb pain. 3 views of left thumb demonstrates degenerative changes of the trapezium first metacarpal joint. Degenerative changes of the interphalangeal joint noted. No definite fracture is noted. Soft tissue swelling is noted. IMPRESSION: Degenerative changes of the distal interphalangeal joint and first carpometacarpal joint. Soft tissue swelling at the base of the nailbed is noted.
[2017-12-20] MEDS ORDERED: Sulfamethox/Trimethoprim DS 800/160* TAB PO ONE (22:07)
== END 2017-12-20 22:35 | disposition home or self-care (01) ==
LOC: UCEAST 20:27
DX: L03.012 Cellulitis of left finger (principal); Z88.1 Allergy status to other antibiotic agents; Z88.5 Allergy status to narcotic agent
CPT/HCPCS: 10060; 87070; 87205; 87640; 87641; 99212; A9270-GY; G0463

== ENCOUNTER 2019-12-26 13:09 | Emergency (ER) | payer MEDICARE ==
[2019-12-26 13:34] VITALS: BP 164/96
== END 2019-12-26 14:05 | disposition home health service (06) ==
LOC: UCEAST 13:09

== ENCOUNTER 2019-12-26 14:33 | Inpatient (IN) | payer MEDICARE ==
[2019-12-26 15:24] LABS: ABS Basophils 0.1 10^3/ul (0-0.2); ABS Eosinophils 0.4 10^3/ul (0-0.6); ABS Lymphocytes 1.5 10^3/ul (1.0-4.8); ABS Monocytes 0.7 10^3/ul (0-0.8); Eosinophil % 4.2 %; Hematocrit 44 % (42-52); Lymphocyte % 14.9 %; Mean Corpuscular HGB Conc 35 g/dL (31-36); Mean Corpuscular Hemoglobin 30 pg (27-31); Mean Corpuscular Volume 87 fL (80-94); Mean Platelet Volume 8.6 fL (7.4-10.4); Platelet Count 225 10^3/uL (150-450); Red Blood Count 5.04 10^6 /uL (4.18-5.48); Red Cell Distribution Width 14 % (10-15); White Blood Count 10.2 10^3/uL (3.5-10.8)
[2019-12-26 15:36] LABS: Activated Partial Thrombo Time 38.3 seconds (26.0-38.0)
[2019-12-26 15:45] LABS: ALT 23 U/L (7-52); AST 36 U/L (13-39); Albumin 4.6 g/dL (3.2-5.2); Albumin/Globulin Ratio 1.4 (1-3); Alkaline Phosphatase 61 U/L (34-104); Anion Gap 10 mmol/L (2-11); Blood Urea Nitrogen 19 mg/dL (6-24); CO2 Carbon Dioxide 24 mmol/L (22-32); Calcium 10.4 mg/dL (8.6-10.3); Chloride 100 mmol/L (101-111); Creatine Kinase 302 U/L (10-223); EGFR African American 67.3 (>60); EGFR Non-African American 55.6 (>60); Globulin 3.4 g/dL (2-4); Glucose 240 mg/dL (70-100); Magnesium 1.8 mg/dL (1.9-2.7); Potassium 4.2 mmol/L (3.5-5.0); Sodium 134 mmol/L (135-145)
[2019-12-26 15:47] LABS: Troponin I 0.87 ng/mL (<0.03)
[2019-12-26] MEDS ORDERED: Heparin - STEMI 5,000 UNITS/ML 1 ml VIAL IV ONE (16:02)
[2019-12-26 16:14] LABS: TSH (Thyroid Stimulating Horm) 2.47 mcIU/mL (0.34-5.60)
[2019-12-26] MEDS ORDERED: Dextrose 50% Syringe 50 ml 25 GM/50 ML SYRINGE IV PUSH PRN (16:50)
[2019-12-26] MEDS ORDERED: nitroGLYCERIN DRIP 25,000 MCG/250 ML BTL ONE (16:51)
[2019-12-26] MEDS ORDERED: fentaNYL 100 mcg/2 ml 50 MCG/ML VIAL ONE (16:51)
[2019-12-26] MEDS ORDERED: Heparin 2 UNITS/ML 1000 mls 3,000 ML IV ONE (16:51)
[2019-12-26] MEDS ORDERED: Heparin 1,000 UNIT/ML CATH LAB 1,000 10 ml (10,000 UNITS) IV ONE (16:51)
[2019-12-26] MEDS ORDERED: Lidocaine 1% VIAL 10 MG/ML VIAL ONE (16:51)
[2019-12-26] MEDS ORDERED: Midazolam 5 mg/5 ml VIAL 1 mg/ml 5 ml VIAL (5 mg) ONE (16:51)
[2019-12-26] MEDS ORDERED: Iodixanol 320 (CONTRAST) 100 ML SDV ONE (16:53)
[2019-12-26] MEDS ORDERED: VERAPAMIL 2.5 MG/ML 2 ML VIAL ** 5 mg/2 ml ONE (16:55)
[2019-12-26] MEDS ORDERED: Metoprolol Tartrate 5 mg VIAL 5 ml VIAL (1 mg/ml) ONE (17:28)
[2019-12-26] MEDS ORDERED: diPHENhydraMINE IV 50 MG/ML 1 ml VIAL (BENADRYL) ONE (18:30)
[2019-12-26] MEDS ORDERED: Adenosine (DIAGNOSTIC) 3 mg/ml 20 ML VIAL (60 MG) IV ONE (18:36)
[2019-12-26] MEDS: Insulin LISPRO 100 units/ml(*) SUBCUT SCH (21:11)
[2019-12-27] MEDS: Insulin LISPRO 100 units/ml(*) SUBCUT SCH ×4 (07:30→21:07)
[2019-12-27] MEDS: CMC:SitaGLIPtin (NF) 100 MG TAB PO SCH (09:00)
[2019-12-27] MEDS ORDERED: Perflutren Lipid Microsphere 3 ML VIAL ONE (09:45)
[2019-12-27] MEDS: Heparin 5000 UNITS/ML VIAL(*) 1 ml vial SUBCUT SCH ×3 (14:00→21:21)
[2019-12-28 01:20] LABS: Troponin I 5.07 ng/mL (<0.03)
[2019-12-28 02:44] LABS: Hematocrit 41 % (42-52); Hemoglobin 13.7 g/dL (14.0-18.0); Mean Corpuscular HGB Conc 34 g/dL (31-36); Mean Corpuscular Hemoglobin 29 pg (27-31); Mean Corpuscular Volume 86 fL (80-94); Platelet Count 227 10^3/uL (150-450); Red Blood Count 4.73 10^6 /uL (4.18-5.48); Red Cell Distribution Width 14 % (10-15); White Blood Count 10.2 10^3/uL (3.5-10.8)
[2019-12-28 02:45] LABS: ABS Basophils 0.1 10^3/ul (0-0.2); ABS Eosinophils 0.3 10^3/ul (0-0.6); ABS Lymphocytes 1.6 10^3/ul (1.0-4.8); ABS Monocytes 0.9 10^3/ul (0-0.8); ABS Nucleated RBC 0.1 10^3/ul; Eosinophil % 2.9 %; Lymphocyte % 15.6 %; Mean Platelet Volume 8.7 fL (7.4-10.4)
[2019-12-28 02:46] LABS: Nucleated Red Blood Cells % 0.1
[2019-12-28 02:47] LABS: Anion Gap 10 mmol/L (2-11); Blood Urea Nitrogen 23 mg/dL (6-24); CO2 Carbon Dioxide 20 mmol/L (22-32); Calcium 9.3 mg/dL (8.6-10.3); Chloride 104 mmol/L (101-111); EGFR African American 62.7 (>60); EGFR Non-African American 51.8 (>60); Glucose 162 mg/dL (70-100); Potassium 4.5 mmol/L (3.5-5.0); Sodium 134 mmol/L (135-145); Triglycerides 145 mg/dL
[2019-12-28 02:48] LABS: Cholesterol 157 mg/dL; HDL Cholesterol 41.6 mg/dL; LDL Cholesterol 86 mg/dL
[2019-12-28] MEDS: Heparin 5000 UNITS/ML VIAL(*) 1 ml vial SUBCUT SCH (03:29)
[2019-12-28] MEDS ORDERED: Heparin 5000 UNITS/ML VIAL(*) 1 ml vial SUBCUT SCH (06:00)
[2019-12-28] MEDS: Insulin LISPRO 100 units/ml(*) SUBCUT SCH ×2 (08:08→12:18)
[2019-12-28] MEDS: CMC:SitaGLIPtin (NF) 100 MG TAB PO SCH (08:12)
[2019-12-28 09:45] LABS: Hematocrit 40 % (42-52); Hemoglobin 13.4 g/dL (14.0-18.0); Mean Corpuscular HGB Conc 34 g/dL (31-36); Mean Corpuscular Hemoglobin 29 pg (27-31); Mean Corpuscular Volume 86 fL (80-94); Mean Platelet Volume 9.1 fL (7.4-10.4); Platelet Count 226 10^3/uL (150-450); Red Blood Count 4.63 10^6 /uL (4.18-5.48); Red Cell Distribution Width 14 % (10-15); White Blood Count 12.3 10^3/uL (3.5-10.8)
[2019-12-28 09:56] LABS: BUN/Creatinine Ratio 19.3 (8-20); Calcium 9.4 mg/dL (8.6-10.3); EGFR African American 60.1 (>60); EGFR Non-African American 49.7 (>60); Potassium 4.2 mmol/L (3.5-5.0)
[2019-12-28 11:26] VITALS: BP 101/68
== END 2019-12-28 13:49 | disposition home or self-care (01) | DRG 282 ==
LOC: ED 14:33 → ICU 16:43 → MEDTELE 12-27 17:15
PROVIDERS: ADMIT Hospitalist; ATTEND Hospitalist

== ENCOUNTER 2020-01-13 08:42 | Observation (INO) ==
[2020-01-13 09:46] LABS: ABS Basophils 0.1 10^3/ul (0-0.2); ABS Eosinophils 0.2 10^3/ul (0-0.6); ABS Lymphocytes 0.8 10^3/ul (1.0-4.8); ABS Monocytes 0.4 10^3/ul (0-0.8); Eosinophil % 2.2 %; Hematocrit 37 % (42-52); Hemoglobin 12.7 g/dL (14.0-18.0); Lymphocyte % 8.5 %; Mean Corpuscular HGB Conc 34 g/dL (31-36); Mean Corpuscular Hemoglobin 30 pg (27-31); Mean Corpuscular Volume 87 fL (80-94); Mean Platelet Volume 9.1 fL (7.4-10.4); Nucleated Red Blood Cells % 0.1; Platelet Count 227 10^3/uL (150-450); Red Cell Distribution Width 14 % (10-15); White Blood Count 9.8 10^3/uL (3.5-10.8)
[2020-01-13 10:06] LABS: ALT 15 U/L (7-52); AST 14 U/L (13-39); Albumin 4.3 g/dL (3.2-5.2); Albumin/Globulin Ratio 1.4 (1-3); Alkaline Phosphatase 77 U/L (34-104); Anion Gap 10 mmol/L (2-11); BUN/Creatinine Ratio 18.3 (8-20); Blood Urea Nitrogen 24 mg/dL (6-24); CO2 Carbon Dioxide 24 mmol/L (22-32); Calcium 9.7 mg/dL (8.6-10.3); Chloride 101 mmol/L (101-111); EGFR African American 64.9 (>60); EGFR Non-African American 53.6 (>60); Globulin 3.1 g/dL (2-4); Glucose 246 mg/dL (70-100); Potassium 4.2 mmol/L (3.5-5.0); Sodium 135 mmol/L (135-145); Total Protein 7.4 g/dL (6.4-8.9); Troponin I 0.11 ng/mL (<0.03)
[2020-01-13] MEDS ORDERED: Furosemide 20 mg/2 ml IV VIAL IV SLOW PU ONE (10:31)
[2020-01-13 12:51] LABS: Troponin I 0.11 ng/mL (<0.03)
[2020-01-13] MEDS: Heparin 5000 UNITS/ML 1 mL VIAL SUBCUT SCH ×2 (16:41→22:27)
[2020-01-13 17:59] LABS: Troponin I 0.12 ng/mL (<0.03)
[2020-01-13 21:16] LABS: Troponin I 0.11 ng/mL (<0.03)
[2020-01-13] MEDS ORDERED: Dextrose 50% Syringe 50 ml 25 GM/50 ML SYRINGE IV PUSH PRN (23:33)
[2020-01-14] MEDS: Heparin 5000 UNITS/ML 1 mL VIAL SUBCUT SCH (06:06)
[2020-01-14 06:25] LABS: BUN/Creatinine Ratio 17.9 (8-20); Calcium 9.4 mg/dL (8.6-10.3); EGFR African American 60.1 (>60); EGFR Non-African American 49.7 (>60); Magnesium 1.7 mg/dL (1.9-2.7); Potassium 4.5 mmol/L (3.5-5.0)
[2020-01-14] MEDS ORDERED: Perflutren Lipid Microsphere 3 ML VIAL ONE (07:55)
[2020-01-14] MEDS ORDERED: Magnesium Sulfate IV 3 GM in NS 0.9% 100 ml BAG 100 ML IVPB ONE (10:30)
[2020-01-14] MEDS ORDERED: Aminophylline 25 MG/ML VIAL ONE (10:49)
[2020-01-14] MEDS ORDERED: Regadenoson 0.4 MG/5 ML SYRINGE ONE (10:49)
[2020-01-15 05:51] LABS: BUN/Creatinine Ratio 21.8 (8-20); Calcium 9.4 mg/dL (8.6-10.3); EGFR African American 63.8 (>60); EGFR Non-African American 52.7 (>60); Potassium 4.7 mmol/L (3.5-5.0)
[2020-01-15 10:21] LABS: Magnesium 2.1 mg/dL (1.9-2.7)
[2020-01-15 11:34] VITALS: BP 120/72
== END 2020-01-15 12:50 | disposition home or self-care (01) ==
LOC: ED 08:42 → MED 08:42 → MEDTELE 15:04
PROVIDERS: ADMIT Internal Medicine; ATTEND Internal Medicine

== ENCOUNTER 2020-01-19 12:56 | Inpatient (IN) ==
[2020-01-19 13:44] LABS: ABS Basophils 0.1 10^3/ul (0-0.2); ABS Eosinophils 0.1 10^3/ul (0-0.6); ABS Lymphocytes 1.2 10^3/ul (1.0-4.8); Eosinophil % 0.9 %; Hematocrit 25 % (42-52); Hemoglobin 8.5 g/dL (14.0-18.0); Lymphocyte % 8.2 %; Mean Corpuscular HGB Conc 34 g/dL (31-36); Mean Corpuscular Hemoglobin 29 pg (27-31); Mean Corpuscular Volume 86 fL (80-94); Mean Platelet Volume 8.8 fL (7.4-10.4); Platelet Count 260 10^3/uL (150-450); Red Blood Count 2.92 10^6 /uL (4.18-5.48); Red Cell Distribution Width 14 % (10-15); White Blood Count 14.7 10^3/uL (3.5-10.8)
[2020-01-19 13:47] LABS: INR 1.24 (0.82-1.09)
[2020-01-19] MEDS ORDERED: Pantoprazole 80 mg in NS BAG 80 MG/250 ML BAG IV ONE (13:54)
[2020-01-19] MEDS ORDERED: NS 0.9% 1000 ml BAG 1,000 ML IV ONE (13:55)
[2020-01-19 14:09] LABS: Albumin/Globulin Ratio 1.5 (1-3); BUN/Creatinine Ratio 30.5 (8-20); Calcium 9.6 mg/dL (8.6-10.3); EGFR African American 55.1 (>60); EGFR Non-African American 45.5 (>60); Globulin 2.6 g/dL (2-4); Potassium 4.3 mmol/L (3.5-5.0); Total Bilirubin 0.8 mg/dL (0.2-1.0); Total Protein 6.6 g/dL (6.4-8.9)
[2020-01-19 15:08] LABS: C Reactive Protein 2.08 mg/L (<8.01)
[2020-01-19] MEDS ORDERED: NS 0.9% 1000 ml BAG 1,000 ML IV SCH (15:15)
[2020-01-19] MEDS ORDERED: Dextrose 50% Syringe 50 ml 25 GM/50 ML SYRINGE IV PUSH PRN (17:28)
[2020-01-19 19:21] LABS: Urine Appearance Clear; Urine Bilirubin Negative (Negative); Urine Blood Negative (Negative); Urine Color Yellow; Urine Glucose Negative (Negative); Urine Ketones Negative (Negative); Urine Nitrite Negative (Negative); Urine Protein Negative (Negative); Urine Specific Gravity 1.017 (1.010-1.030); Urine Urobilinogen Negative (Negative)
[2020-01-19 19:53] LABS: Hematocrit 22 % (42-52); Hemoglobin 7.4 g/dL (14.0-18.0)
[2020-01-20 01:32] LABS: Hematocrit 24 % (42-52); Hemoglobin 8.1 g/dL (14.0-18.0)
[2020-01-20 07:44] LABS: ABS Basophils 0.1 10^3/ul (0-0.2); ABS Eosinophils 0.3 10^3/ul (0-0.6); ABS Lymphocytes 1.6 10^3/ul (1.0-4.8); ABS Monocytes 0.8 10^3/ul (0-0.8); Eosinophil % 3.6 %; Hematocrit 24 % (42-52); Hemoglobin 8.3 g/dL (14.0-18.0); Lymphocyte % 16.1 %; Mean Corpuscular HGB Conc 34 g/dL (31-36); Mean Corpuscular Hemoglobin 30 pg (27-31); Mean Corpuscular Volume 87 fL (80-94); Mean Platelet Volume 8.1 fL (7.4-10.4); Platelet Count 195 10^3/uL (150-450); Red Blood Count 2.79 10^6 /uL (4.18-5.48); Red Cell Distribution Width 14 % (10-15); White Blood Count 9.7 10^3/uL (3.5-10.8)
[2020-01-20 07:54] LABS: INR 1.24 (0.82-1.09)
[2020-01-20 08:04] LABS: BUN/Creatinine Ratio 23.9 (8-20); Calcium 8.7 mg/dL (8.6-10.3); EGFR African American 61.1 (>60); EGFR Non-African American 50.5 (>60); Potassium 4.1 mmol/L (3.5-5.0)
[2020-01-20] MEDS: CMC:Simvastatin 20 mg TAB (NF) PO SCH (09:50)
[2020-01-20] MEDS ORDERED: fentaNYL 100 mcg/2 ml 50 MCG/ML VIAL ONE (12:34)
[2020-01-20] MEDS ORDERED: Midazolam 10 mg/10 ml VIAL 1 mg/ml 10 ml VIAL (10 mg) ONE (12:34)
[2020-01-20] MEDS: Pantoprazole 80 mg in NS BAG 80 MG/250 ML BAG IV SCH (14:55)
[2020-01-20 18:32] LABS: Hematocrit 24 % (42-52); Hemoglobin 8.3 g/dL (14.0-18.0)
[2020-01-20 21:59] LABS: Hematocrit 23 % (42-52)
[2020-01-20] MEDS ORDERED: NS 0.9% 1000 ml BAG 1,000 ML IV ONE (23:39)
[2020-01-21] MEDS: Pantoprazole 80 mg in NS BAG 80 MG/250 ML BAG IV SCH (03:23)
[2020-01-21 07:53] LABS: ABS Basophils 0.1 10^3/ul (0-0.2); ABS Eosinophils 0.4 10^3/ul (0-0.6); ABS Lymphocytes 1.2 10^3/ul (1.0-4.8); ABS Monocytes 0.7 10^3/ul (0-0.8); Eosinophil % 4.5 %; Hematocrit 23 % (42-52); Hemoglobin 7.9 g/dL (14.0-18.0); Lymphocyte % 13.6 %; Mean Corpuscular HGB Conc 35 g/dL (31-36); Mean Corpuscular Hemoglobin 30 pg (27-31); Mean Corpuscular Volume 87 fL (80-94); Mean Platelet Volume 8.6 fL (7.4-10.4); Platelet Count 192 10^3/uL (150-450); Red Blood Count 2.64 10^6 /uL (4.18-5.48); Red Cell Distribution Width 14 % (10-15); White Blood Count 9.1 10^3/uL (3.5-10.8)
[2020-01-21] MEDS: CMC:Simvastatin 20 mg TAB (NF) PO SCH (08:01)
[2020-01-21 13:02] VITALS: BP 111/57
== END 2020-01-21 18:15 | disposition home or self-care (01) | DRG 377 ==
LOC: MEDTELE 12:56 → ED 12:56 → ICU 01-20 09:41 → MEDTELE 01-20 13:30
PROVIDERS: ADMIT Nurse Practitioner; ATTEND Hospitalist